=== PATIENT | male | born 1995 | race Caucasian/White ===

== ENCOUNTER 2017-07-10 17:31 | Emergency (ER) | payer OTHER ==
[~2017-07-10] VITALS: Ht 180.3 cm; Wt 114.1 kg
[2017-07-10 18:05] VITALS: BP 143/74; PULSE 97; RESP 18; TEMP 98.1; O2SAT 100
[2017-07-10] MEDS ORDERED: IBUPROFEN 800 MG TAB PO ONE (19:45)
[2017-07-10] MEDS ORDERED: CYCLOBENZAPRINE HCL 10 MG TAB PO ONE (19:45)
[2017-07-10] MEDS ORDERED: IBUP-232 PO ×3 (19:51→20:14)
[2017-07-10] MEDS ORDERED: CYCL1TAB29 PO ×3 (19:51→20:14)
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
== END 2017-07-10 20:20 | disposition home or self-care (01) ==
LOC: PHEFT 17:31
DX: G44.319 Acute post-traumatic headache, not intractable (principal); M54.2 Cervicalgia; V43.52XA Car driver injured in collision with other type car in traffic accident, initial encounter; Y92.410 Unspecified street and highway as the place of occurrence of the external cause; Y99.8 Other external cause status
CPT/HCPCS: 99283